=== PATIENT | female | born 1935 ===

== ENCOUNTER 2017-08-13 15:25 | Inpatient (IN) | payer MEDICAID ==
[~2017-08-13] VITALS: Ht 152.4 cm; Wt 88.9 kg
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
--- NOTE | ~2017-08-13 | PR ---
[place], [place] PROGRESS NOTE [id number] #: [id number] ROOM: 310 DOCTOR: ELIZABETH MANCILLA MD BIRTHDATE: [birth year] DOS: 08/16/2017 CHIEF COMPLAINT: "Oh yes if you can help show me to breakfast, I would appreciate it." SUMMARY OF THE VISIT: The patient was interviewed as she was finishing getting ready in her room with assistance of the aide. She was sitting at the edge of her bed, but engaged in conversation readily with me. She was bright and pleasant and stated that she has been feeling better since she has been here. She could not exactly tell me what happened that led to her coming into the hospital in the first place. Nurses though do report a near if not truly obsessional quality with the bathroom. She literally will sit on the toilet for hours until her roommate needs to utilize the toilet and then with much encouragement nursing can get her off so that her roommate can go into the restroom. This behavior was very similar to some behavior she exhibited while at [facility] and the root of some of her agitation may be related to obsessive compulsive disorder. MENTAL STATUS: She is alert and oriented with significant time gaps. Mood does seem to be somewhat euthymic with anxious overtones; however, there are no voiced delusions or paranoia and there is no voiced nell or hypomanic symptoms. Memory has gaps. PLAN: Her vitamin B12 level is low normal at 286, so I will go ahead and supplement with vitamin B12 injection of 1000 mcg IM today. I will start her on Luvox 50 mg at bedtime and rapidly titrate this as needed and as tolerated. We will monitor and support, engage in individual and hdez milieu activity, returning back to [facility] and the least restrictive environment when psychiatrically stable. ELIZABETH MANCILLA MD CM:PNTRANS 1 2 ELIZABETH MANCILLA MD 08/16/17932 interface
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
--- NOTE | ~2017-08-13 | PR ---
[place], [place] PROGRESS NOTE NAME: [facility] [id number] UN[facility] #: [id number] ROOM: 310 DOCTOR: ELIZABETH MANCILLA MD BIRTHDATE: [birth year] DOS: 08/21/2017 CHIEF COMPLAINT: "Oh honey I feel better, thank you." SUMMARY OF THE VISIT: The patient was interviewed as she was resting in bed. She was lying there with her eyes open and engaged readily in conversation. I had watched her eat her breakfast and she ate all of her breakfast and then walked down to her room unassisted. She did receive the Invega Sustenna injection and she was quite happy to have the injection as opposed to having to remember to take pills. She voices an improvement in her overall mood and denies any side effects. MENTAL STATUS: She is alert and oriented with some time gaps. Mood does seem to be strongly trending towards euthymia and affect is much more appropriate. There are no symptoms of nell or hypomania. There are no overt auditory or visual hallucinations. No delusions, no paranoia. Short term memory has gaps, otherwise she is intact. PLAN: I will go ahead and put an order in for her secondary loading dose of Invega Sustenna of 156 mg IM on 08/26/2017. We will continue to engage in individual and hdez milieu activity with the ultimate plan to return to [facility] when psychiatrically stable. ELIZABETH MANCILLA MD CM:PNTRANS 0817 [id number] ELIZABETH MANCILLA MD 08/21/17 1448 interface
--- NOTE | ~2017-08-13 | PR ---
[place], [place] PROGRESS NOTE [id number] #: [id number] ROOM: 310 DOCTOR: ELIZABETH MANCILLA MD BIRTHDATE: [birth year] DOS: 08/22/2017 CHIEF COMPLAINT: "Good morning, thank you so much for coming." SUMMARY OF THE VISIT: The patient was interviewed as she was resting quietly in bed. She engaged readily in conversation and she said that she had a good rest of the day yesterday and a good start today. She just felt like staying in her room, which tends to be her pattern at [facility]. She did tolerate and has tolerated the Invega Sustenna well and notes no side effects. MENTAL STATUS: She is alert and oriented with time gaps. Mood does seem to be trending towards euthymia. Affect is much more appropriate. There are no symptoms of nell or hypomania. There are no overt auditory or visual hallucinations. No delusions, no paranoia. Short term memory has gaps, otherwise she is intact. PLAN: I will continue her current psychotropic regimen, engage in individual and hdez milieu activity, returning to the least restrictive environment when stable. ELIZABETH MANCILLA MD CM:PNTRANS 1429 [id number] ELIZABETH MANCILLA MD 08/23/17 0041 interface
--- NOTE | ~2017-08-13 | PR ---
[place], [place] PROGRESS NOTE NAME: MAGALY ORDAZ [facility] #: [id number] UNIT #: [id number] ROOM: 310 DOCTOR: Tamiko CALLAWAY,TE BIRTHDATE: [birth year] DOS: 08/15/2017 SUBJECTIVE: Patient seen and spoke with the staff. Per staff, patient is doing good, med compliant, slept well. No behavioral problems or issues. Patient was pleasant and cooperative. She reports doing "fine." Med compliant. Denied any side effect from the medication. She denied any auditory or visual hallucination. She feels that the medication is helping her. MENTAL STATUS EXAMINATION: Pleasant and cooperative. Described her mood as "fine." Affect, mood congruent. Thought process, goal directed. No flight of ideas or loosening of association. She denied auditory or visual hallucination. No delusion or paranoia noted. She denied suicidal ideation, intent or plan. She also denied any homicidal ideation, intent or plan. ASSESSMENT: Schizoaffective disorder. PLAN: 1. Continue current medication and care. 2. Continue redirection. 3. Final medication management and discharge plan by the regular team. TE CALLAWAY MD CM:BRI 00 35 Tamiko CALLAWAY 08/15/17 2336 interface
--- NOTE | ~2017-08-13 | PR ---
[place], [place] PROGRESS NOTE [id number] #: [id number] ROOM: 310 DOCTOR: ELIZABETH MANCILLA MD BIRTHDATE: [birth year] DOS: 08/19/2017 CHIEF COMPLAINT: "I don't want to go back there. There are bad people there." SUMMARY OF THE VISIT: The patient was interviewed in the dining area where she was eating her breakfast. She engaged readily in conversation and initially was very pleasant and bright, reporting that she was feeling somewhat better. Later, she did start talking about returning back to [facility] where by her report, she has lived for the last 17 years. She states that she does not want to go back there that there are bad people there. She later did state that it was not the residents but some of the workers that are doing bad things and are bothering her. Whether this is reality or a delusion it is unclear. On a more positive note, she is at least out of her room more and is attending to groups and other activities. She is tolerating the current medication regimen well. MENTAL STATUS: She is alert and oriented with time gaps. Mood does seem to be trending towards euthymia. Affect is more appropriate. Whether the comments regarding her living situation are reality or delusional, it is unclear. Memory has some gaps. PLAN: I will renew her p.r.n. Ativan in case she requires intervention. I will continue to increase the Luvox from 50 mg in the morning and 100 mg at night to 50 mg twice daily and 100 mg at night to target depression, anxiety and her OCD symptoms. We will engage in individual and hdez milieu activity with the plan to return to the least restrictive environment when psychiatrically stable. ELIZABETH MANCILLA MD CM:PNTRANS 6 1 ELIZABETH MANCILLA MD 08/19/1731 interface
--- NOTE | ~2017-08-13 | PR ---
[place], [place] PROGRESS NOTE [id number] UN[facility] #: [id number] ROOM: 310 DOCTOR: ELIZABETH MANCILLA MD BIRTHDATE: [birth year] DOS: 08/17/2017 CHIEF COMPLAINT: "Oh, hello there doctor." SUMMARY OF THE VISIT: The patient was interviewed as she was sitting in her room attempting to take her medications from one of the nurses. She was very deliberately taking 1 pill at a time and washing it down with water. At one point, she got up and ran to the restroom stating that she thought she was going to throw up. Otherwise, she engaged in very superficial conversation. She seemed to minimize any symptoms as far as what brought her here to the hospital. Nurses report a near obsessional belief about the restroom and she will still spend hours in the restroom, requiring a great deal of redirection, so that her roommate can actually use the restroom at times. The patient does seem to be tolerating the current medication regimen well and I see no sedation, somnolence or other side effects. MENTAL STATUS: She is alert and oriented with some time gaps. Mood does seem to be somewhat depressed and she is anxious and fretful. There are no overt and voiced delusions or paranoia. Memory has some mild gaps. PLAN: I will continue to rapidly titrate the Luvox upwards, increasing her now from 50 mg at bedtime to 50 mg in the morning and 50 mg at bedtime. I will discontinue the Depakote ER as she does have Invega already on board to decrease mood lability and rather than having redundancy in this area, I will focus more on alleviating some of her OCD type symptoms. We will continue to engage her in individual and hdez and milieu activity, ultimately returning back to [facility] when psychiatrically stable. ELIZABETH MANCILLA MD CM:PNTRANS [id number] ELIZABETH MANCILLA MD 08/17/17 1031 interface
[2017-08-13] MEDS ORDERED: DEPAKOTE500 M1 PO (16:30)
[2017-08-13] MEDS ORDERED: LEVOTHYROXINE50 MCG PO (16:31)
[2017-08-13] MEDS ORDERED: THERA-M1 EACH PO (16:32)
[2017-08-13] MEDS ORDERED: ARICEPT10 M1 PO (16:33)
[2017-08-13] MEDS ORDERED: METFORMIN500 MG PO (16:34)
[2017-08-13] MEDS ORDERED: NAMENDA XR28 M1 PO (16:35)
[2017-08-13] MEDS ORDERED: ARTANE5 M1 PO (16:37)
[2017-08-13] MEDS ORDERED: ASPIRIN CHEWABL81 MG PO (16:38)
[2017-08-13] MEDS ORDERED: CARBIDOPA-LEVO1 EAC7 PO (16:39)
[2017-08-13] MEDS ORDERED: ZOCOR40 MG PO (16:46)
[2017-08-13] MEDS ORDERED: ZYPREXA10 M1 PO (16:46)
[2017-08-13] MEDS ORDERED: NEOMYCIN500 MG PO (16:54)
[2017-08-13 17:39] LABS: BILIRUBIN NEGATIVE (NEGATIVE); BLOOD NEGATIVE (NEGATIVE); CLARITY SL CLOUDY (CLEAR); COLOR YELLOW (YELLOW); GLUCOSE NEGATIVE (NEGATIVE); KETONE TRACE (NEGATIVE); LEUKO ESTERASE NEGATIVE (NEGATIVE); NITRITE NEGATIVE (NEGATIVE); PH 5.5 (5.0-9.0); SPECIFIC GRAVITY >= 1.030 (1.005-1.030); UROBILINOGEN 0.2 E.U./dl (0.2-1.0)
[2017-08-13 17:49] LABS: BACTERIA 2+; EPITHELIAL CELLS 16-20
[2017-08-13 19:00] VITALS: BP 140/63
[2017-08-14 07:08] LABS: BASO # 0.1 10*3/uL (0.0-0.1); BASO % 0.9 % (0.0-1.0); EOS # 0.1 10*3/uL (0.0-0.4); EOS % 2.1 % (1.0-4.0); HEMATOCRIT 34.9 % (37.0-47.0); HEMOGLOBIN 11.4 g/dl (12.0-16.0); LYMPH # 2.3 10*3/uL (1.3-4.4); LYMPH % 43.7 % (27.0-41.0); MEAN CELL VOLUME 95.4 fl (81.0-99.0); MEAN CORPUSCULAR HGB 31.1 pg (27.0-31.0); MEAN CORPUSCULAR HGB CONC 32.7 g/dl (33.0-37.0); MEAN PLATELET VOLUME 12.1 fl (9.6-12.3); MONO # 0.5 10*3/uL (0.1-1.0); MONO % 10.1 % (3.0-9.0); NEUT # 2.3 10*3/uL (2.3-7.9); NEUT % 42.8 % (47.0-73.0); PLATELET COUNT AUTOMATED 156 10*3/uL (130-400); RED BLOOD COUNT 3.66 10*6/uL (4.10-5.10); RED CELL DISTRI WIDTH 13.8 % (0-14.5); WHITE BLOOD COUNT 5.4 10*3/uL (4.8-10.8)
[2017-08-14 07:30] LABS: CHLORIDE 103 mmol/L (98-107); POTASSIUM 3.9 mmol/L (3.5-5.1); SODIUM 140 mmol/L (136-145)
[2017-08-14 07:40] LABS: ALBUMIN 3.4 gm/dl (3.1-4.5); ALKALINE PHOSPHATASE 71 U/L (45-117); BUN 20 mg/dl (7-24); CHOLESTEROL 189 mg/dL (<200); CREATININE 1.35 mg/dL (0.55-1.02); HDL CHOLESTEROL 69 mg/dl (40-60); LDL CHOLESTEROL 102 mg/dL (9-159); SGOT/AST 41 IU/L (3-35); SGPT/ALT 39 U/L (12-78); TOTAL PROTEIN 6.8 gm/dL (6.4-8.2); TRIGLYCERIDES 92 mg/dl (<150); VLDL CHOLESTEROL 18 mg/dL (6-40)
[2017-08-14 07:52] VITALS: BP 136/82
[2017-08-14 08:19] LABS: VITAMIN D, 25-HYDROXY 33.5 ng/mL (30-100)
[2017-08-14 20:00] VITALS: BP 146/76
[2017-08-15 07:38] VITALS: BP 144/74
[2017-08-15 20:00] VITALS: BP 130/60
[2017-08-16 08:18] VITALS: BP 130/74
[2017-08-16 20:00] VITALS: BP 128/66
[2017-08-17 08:10] VITALS: BP 108/65
[2017-08-17 20:22] VITALS: BP 152/73
[2017-08-17 20:48] VITALS: BP 128/74
[2017-08-18 08:00] VITALS: BP 130/58
[2017-08-18 20:00] VITALS: BP 129/54
[2017-08-19 08:01] VITALS: BP 135/56
[2017-08-19 20:00] VITALS: BP 132/62
[2017-08-20 07:55] VITALS: BP 134/62
[2017-08-20 20:00] VITALS: BP 140/68
[2017-08-21 07:56] VITALS: BP 130/64
[2017-08-21 20:05] VITALS: BP 131/54
[2017-08-22 07:59] VITALS: BP 127/56
[2017-08-22 20:00] VITALS: BP 129/58
[2017-08-23 07:38] LABS: BASO # 0.1 10*3/uL (0.0-0.1); EOS # 0.2 10*3/uL (0.0-0.4); LYMPH % 33.2 % (27.0-41.0); MEAN CELL VOLUME 96.9 fl (81.0-99.0); MEAN CORPUSCULAR HGB 31.3 pg (27.0-31.0); MEAN CORPUSCULAR HGB CONC 32.4 g/dl (33.0-37.0); MEAN PLATELET VOLUME 12.2 fl (9.6-12.3); MONO # 0.6 10*3/uL (0.1-1.0); MONO % 10.3 % (3.0-9.0); NEUT % 51.3 % (47.0-73.0); PLATELET COUNT AUTOMATED 131 10*3/uL (130-400); RED BLOOD COUNT 3.51 10*6/uL (4.10-5.10); RED CELL DISTRI WIDTH 13.7 % (0-14.5); WHITE BLOOD COUNT 5.9 10*3/uL (4.8-10.8)
[2017-08-23 08:01] VITALS: BP 139/56
[2017-08-23] MEDS ORDERED: ARICEPT10 M1 PO (08:06)
[2017-08-23] MEDS ORDERED: TRIHEXYPHENIDYL2 M3 PO (08:06)
[2017-08-23] MEDS ORDERED: MEMANTINE HCL10 MG PO (08:06)
[2017-08-23] MEDS ORDERED: FLUVOXAMINE50 MG PO ×2 (08:06)
[2017-08-23] MEDS ORDERED: INVEGA SUSTENN156 MG IM (08:06)
[2017-08-23 08:09] LABS: CREATININE 1.41 mg/dL (0.55-1.02); PHOSPHOROUS 3.5 mg/dL (2.5-4.9); POTASSIUM 4.5 mmol/L (3.5-5.1)
== END 2017-08-23 14:11 | disposition home or self-care (01) | DRG 885 ==
LOC: 3N 15:25
PROVIDERS: Internal Medicine; Psychiatry & Neurology Psychiatry
DX: F25.9 Schizoaffective disorder, unspecified (principal); G20 Parkinson's disease; E11.9 Type 2 diabetes mellitus without complications; G30.9 Alzheimer's disease, unspecified; F02.81 Dementia in other diseases classified elsewhere, unspecified severity, with behavioral disturbance; B95.5 Unspecified streptococcus as the cause of diseases classified elsewhere; E03.9 Hypothyroidism, unspecified; E78.5 Hyperlipidemia, unspecified; F31.9 Bipolar disorder, unspecified; N39.0 Urinary tract infection, site not specified; F41.9 Anxiety disorder, unspecified; Z91.19 Patient's noncompliance with other medical treatment and regimen; Z79.899 Other long term (current) drug therapy; Z79.82 Long term (current) use of aspirin

== ENCOUNTER 2020-03-26 15:15 | Inpatient (IN) | payer MEDICAID ==
[~2020-03-26] VITALS: Ht 157.4 cm; Wt 61.3 kg
[~2020-03-26 15:15] MED LIST: ARICEPT10 M1 PO; ARTANE5 M1 PO; ASPIRIN CHEWABL81 MG PO; CARBIDOPA-LEVO1 EAC7 PO; DEPAKOTE500 M1 PO; FLUVOXAMINE50 MG PO; INVEGA SUSTENN156 MG IM; LEVOTHYROXINE50 MCG PO; MEMANTINE HCL10 MG PO; METFORMIN500 MG PO; NAMENDA XR28 M1 PO; NEOMYCIN500 MG PO; THERA-M1 EACH PO; TRIHEXYPHENIDYL2 M3 PO; ZOCOR40 MG PO; ZYPREXA10 M1 PO
[2020-03-26] MEDS ORDERED: DULCOLAX10 M1 R (16:16)
[2020-03-26] MEDS ORDERED: IRON325 M1 PO (16:20)
[2020-03-26] MEDS ORDERED: LIPITOR20 MG PO (16:21)
[2020-03-26] MEDS ORDERED: ANTI-DIARRHEAL2 MG PO (16:22)
[2020-03-26] MEDS ORDERED: MILK OF MA400 MG/51 PO (16:23)
[2020-03-26] MEDS ORDERED: MIRALAX17 GM PO (16:24)
[2020-03-26] MEDS ORDERED: MYLANTA MAXIMU355 M1 PO (16:26)
[2020-03-26] MEDS ORDERED: OMEPRAZOLE20 M2 PO (16:27)
[2020-03-26] MEDS ORDERED: REMERON15 M2 PO (16:28)
[2020-03-26] MEDS ORDERED: TYLENOL325 M1 PO (16:29)
[2020-03-26] MEDS ORDERED: ZYPREXA5 M1 PO (16:33)
--- NOTE | 2020-03-26 20:54 | NUR ---
MAGALY ORDAZ a 84 year old F admitted via wheel chair from the ADMITTING as a voluntary admission. Arrived on unit at 2053. ALLERGIES: NKA. Vital signs are: 98.7-90-18 153/77. CLIENTS GUARDIAN GAVE VERBAL PERMISSION FOR THE FOLLOWING with stated understanding: Authorization For The Release of Medical Information, Clothing List, Consent to Voluntary Admission and Hospitalization, Consent and Release Forms/Receipt of Rights, Acknowledgement of Advance Directive Information, Behavioral Health Consent Form, and Informed Consent of Medications. Admitted under the services of Dr. LAURENT SHAH,[facility]. A search was conducted and hazardous articles were removed. Client was oriented to the unit. CLIENT DENIES ANY HALLUCINATIONS AND DENIES HAVING SEX WITH UNSEEN OTHERS. ANXIOUS WITH ALL INTERACTIONS. VICENTA DAVIS
[2020-03-26 21:00] VITALS: BP 153/77
[2020-03-26 21:17] VITALS: BP 153/77
--- NOTE | 2020-03-26 21:19 | NUR ---
CLIENT PARANOID ABOUT MEDICATION, VITALS MACHINE, HATS IN TOILET TO GET URINE. MUCH REDIRECTION NEEDED WITH EMOTIONAL SUPPORT.
--- NOTE | 2020-03-26 21:23 | NUR ---
DR JOEL NOTIFIED OF ADMISSION. DR YA IS HOSPITALIST
--- NOTE | 2020-03-26 21:30 | NUR ---
DR PATTERSON HERE TO SEE CLIENT. CLIENT INTERACTIVE WITH HIM.
--- NOTE | 2020-03-26 22:07 | NUR ---
STATES SHE LAYJACKS HERSELF TO FEEL BETTER (CROSS LEGS AND RUB CLIT). THEY TELL ME I AM GOING TO BREAK MYSELF DOING IT BUT I WON'T
[2020-03-26 22:48] LABS: BILIRUBIN NEGATIVE; BLOOD NEGATIVE (NEGATIVE); CLARITY SL CLOUDY (CLEAR); COLOR YELLOW (YELLOW); GLUCOSE NEGATIVE; KETONE NEGATIVE; LEUKO ESTERASE TRACE (NEGATIVE); NITRITE NEGATIVE (NEGATIVE); SPECIFIC GRAVITY 1.025 (1.001-1.030); UROBILINOGEN 0.2 E.U./dl (0.0-1.0)
[2020-03-26 22:54] LABS: EPITHELIAL CELLS 16-20
--- NOTE | 2020-03-27 01:38 | NUR ---
24 HR chart check completed.
--- NOTE | 2020-03-27 05:51 | NUR ---
SLEPT WELL PAST 2300PM
[2020-03-27 06:36] LABS: BASO # 0.1 10*3/uL (0.0-0.1); EOS # 0.1 10*3/uL (0.0-0.4); EOS % 1.2 % (1.0-4.0); HEMATOCRIT 33.1 % (37.0-47.0); LYMPH # 1.3 10*3/uL (1.3-4.4); LYMPH % 26.7 % (27.0-41.0); MEAN CELL VOLUME 85.5 fl (81.0-99.0); MEAN CORPUSCULAR HGB 26.6 pg (27.0-31.0); MEAN CORPUSCULAR HGB CONC 31.1 g/dl (33.0-37.0); MEAN PLATELET VOLUME 12.2 fl (9.6-12.3); MONO # 0.4 10*3/uL (0.1-1.0); MONO % 8.2 % (3.0-9.0); NEUT # 3.1 10*3/uL (2.3-7.9); NEUT % 62.7 % (47.0-73.0); PLATELET COUNT AUTOMATED 217 10*3/uL (130-400); RED BLOOD COUNT 3.87 10*6/uL (4.10-5.10); RED CELL DISTRI WIDTH 16.9 % (0-14.5)
--- NOTE | 2020-03-27 06:58 | NUR ---
C/O OF NOT FEELING GOOD, WANTING TO GO HOME. ORIENTED TO PLACE AND SELF. VITALS STABLE, BSG 83
[2020-03-27 06:59] VITALS: BP 120/61
[2020-03-27 07:12] LABS: ALBUMIN 3.2 gm/dl (3.1-4.5); CREATININE 1.76 mg/dL (0.55-1.02); FREE T4 0.78 ng/dl (0.76-1.46); POTASSIUM 4.6 mmol/L (3.5-5.1); TOTAL PROTEIN 7.1 gm/dL (6.4-8.2)
[2020-03-27 07:17] LABS: THYROID STIM HORMONE (HS) 7.69 uIU/ml (0.358-4.75)
[2020-03-27 08:47] LABS: VITAMIN D, 25-HYDROXY 39.6 ng/mL (30-100)
--- NOTE | 2020-03-27 09:00 | NUR ---
Treatment Plan meeting was held this a.m. with Dr. Gauthier via telephone, RN, AT, GIACOMO-S and Meat Service Team Member in attendance. Plan for discharge Next Week. Pt. came to [facility] from [facility]. Will reach out to facility today to discuss discharge Plans.
--- NOTE | 2020-03-27 11:56 | NUR ---
AM GROUP PT CHOSE NOT TO ATTEND MORNING GROUP THERAPY. PT WAS IN BED RESTING AND STATED, "I PROBABLY WON'T COME DOWN FOR ACTIVITIES BECAUSE I WILL BE LEAVING SOON"
--- NOTE | 2020-03-27 15:47 | NUR ---
PM GROUP/MANICURES PT CHOSE NOT TO ATTEND AFTERNOON GROUP THERAPY. PT WAS IN BED RESTING.
[2020-03-27 19:51] VITALS: BP 114/66
--- NOTE | 2020-03-27 20:44 | NUR ---
ISOLATIVE TO ROOM. ATE SNACK THEN REQUESTED ORAL HY[employer]ENE PRODUCTS FOR PM CARE. MEDICATION COMPLIANT BUT REFUSED BSG. REFUSED TO DISCUSS THE DAYS EVENTS AND WOULD ONLY SAY IT WAS "FINE". WILL CONTINUE TO MONITOR FOR CHANGES IN MOOD/BEHAVIOR AND Q 15 MINS AND PRN FOR SAFETY
--- NOTE | 2020-03-28 02:01 | NUR ---
24 HR chart check completed.
--- NOTE | 2020-03-28 06:04 | NUR ---
SLEPT WELL WITH INTERUPTIONS TO VOID. SLEPT PAST 2044PM
--- NOTE | 2020-03-28 06:07 | NUR ---
SLEPT WELL WITH INTERUPTIONS TO VOID. SLEPT PAST 2044PM
[2020-03-28 07:54] VITALS: BP 113/67
--- NOTE | 2020-03-28 09:07 | NUR ---
Treatment Plan meeting was held this a.m. with Dr. Gauthier RN, FINE CHEMICALS OPERATOR-S and Bench Inspector. Plan for discharge Next Week. Did reach out to [facility]. Pt. is LTC at facility but will require a Level of Care Prior to return due to being out of Medicaid Bed Hold Days. Clinical Updates faxed to Corporate at [facility].
--- NOTE | 2020-03-28 10:26 | NUR ---
DR PENN AND TEAM ON UNIT TO ASSESS PT, UPDATE PROVIDED.
--- NOTE | 2020-03-28 15:47 | NUR ---
P: PT ISOLATIVE TO ROOM THROUHGO DAY, REFUSED BREAKFAST. I: PROVIDE EMOTIONAL SUPPORT AND 1:1 FOR PT TO VOICE FEELINGS, ENCOURAGE MED COMPLIANCE AND PROVIDE MED EDUCATION, ENCOURAGE GROUP PARTICIPATION AND SOCIALIZATION, ENCOURAGE PO INTAKE R: PT ALERT TO PERSON, PLACE AND TIME. PT MED COMPLIANT WITHOUT DIFFICULTY, MED EDUCATION PROVIDED. NO HALLUCINATIONS OR DELUSIONS NOTED. PT DENIES ANY SUICIDAL THOUGHTS OR BEHAVIORS. PT CONTINUES TO BE ISOLATIVE TO ROOM, REFUSED BREAKFAST, CONSUMED 100% OF LUNCH. PT AMBULATORY THROUGOUT UNIT WITH WHEELED WALKER, GAIT STEADY. PT CONTINENT OF BOWEL AND BLADDER. P: MONITOR PT BEHAVIORS ON Q15 MIN SAFETY CHECKS, ENCOURAGE MED COMPLIANCE AND PROVIDE MED EDUCATION, ENCOURAGE PO INTAKE, ENCOURAGE GROUP PARTICIPATION AND SOCIALZIATION, PROVIDE EMOTIONAL SUPPORT AND 1:1 FOR PT TO VOICE FEELINGS.
[2020-03-28 20:00] VITALS: BP 107/63
--- NOTE | 2020-03-28 22:17 | NUR ---
PT WITH NO ADVERSE BEHAVIORS SO FAR THIS SHIFT. PATIENT ALERT AND ORIENTED X3 WITH CONFUSION. PT ISOLATIVE TO ROOM SINCE BEGINNING OF SHIFT, ONLY BRIEFLY COMING TO DINING ROOM TO EAT HS SNACK. PT GUARDED AT TIMES BUT OTHERWISE CALM, COOPERATIVE. MEDICATION COMPLIANT WITHOUT DIFFICULTY AFTER REVIEW. PT DENIES SI/HI, HALLUCINATIONS, AND PAIN. NO NOTED RESPONDING TO INTERNAL STIMULI. PT WITH STEADY GAIT USING WHEELED WALKER, INDEPENDENT IN ADL'S, CONTINENT OF BOWEL AND BLADDER. PT CURRENTLY LAYING DOWN WITH EYES CLOSED, RESPIRATIONS EASY AND REGULAR, NO SIGNS OR SYMPTOMS OF DISTRESS NOTED. PLAN IS TO CONTINUE TO MONITOR MOOD AND BEHAVIORS. MAINTAIN Q 15 MIN CHECKS AND PRN FOR SAFETY.
--- NOTE | 2020-03-29 01:28 | NUR ---
PATIENT OBSERVED BY STAFF TO TAKE TRASH CAN X2 AND HIT IT OFF SIDE OF BED. WHEN QUESTIONED, PATIENT STATED "IM NOT DOING ANYTHING, IM GOING TO THE BATHROOM". TRASH CAN REMOVED FROM ROOM AT THIS TIME, PT REDIRECTED BACK TO BED. WILL CONTINUE TO MONITOR FOR ESCALATING BEHAVIORS.
--- NOTE | 2020-03-29 05:57 | NUR ---
PATIENT OBSERVED ON Q 15 MIN CHECKS TO HAVE SLEPT APPROX 5 HOURS, INTERRUPTED. MULTIPLE AWAKENINGS NOTED TO HIT CALL LIGHT FOR VARIOUS WANTS AND DEMANDS, (ROLLS OF TOLIET PAPER, WASH RAGS, TOWELS, SIMONS) DESPITE ALL NEEDS BEING MET. PATIENT REDIRECTED BACK TO BED WITH MUCH ENCOURAGEMENT EACH TIME. NO DISTRESS NOTED.
--- NOTE | 2020-03-29 06:59 | NUR ---
PATIENT PREOCCUPIED WITH SITTING ON THE TOILET THIS AM, NO URINE OR BM OBSERVED. WHEN QUESTIONED WHY SHE KEEPS RETURNING TO THE TOILET PATIENT STATES "OH IM JUST THINKING". UNABLE TO REDIRECT AT THIS TIME.
[2020-03-29 07:23] VITALS: BP 152/56
--- NOTE | 2020-03-29 07:27 | NUR ---
Patient resting quietly with no c/o discomfort. Respirations easy and regular. Vital signs stable. No overt distress. CRUZITO NAVARRETE
--- NOTE | 2020-03-29 10:26 | NUR ---
DR PENN AND TEAM ON UNIT TO ASSESS PT, UPDATE PROVIDED.
--- NOTE | 2020-03-29 11:39 | NUR ---
AM GROUP/SOCIALIZATION PT ISOLATES TO ROOM AND CHOOSES NOT TO ATTEND OR PARTICIPATE IN GROUP THERAPY. PT WAS OFFERED ACTIVITIES THAT COULD BE DONE IN HER ROOM, MAGAZINES, WORD SEARCH, ETC, BUT PT DECLINED.
--- NOTE | 2020-03-29 13:15 | NUR ---
OT NOTE Occupational therapy order received and OT screening completed this date. Patient demonstrated independent ADLs and Mod I transfers/mobility within the HU. Patient has no further OT needs at this time. Will discharge OT orders at this time. Thank you. Yolette Anthony, OTR/L
--- NOTE | 2020-03-29 13:27 | NUR ---
PHYSICAL THERAPY PT evaluation attempted. Patient modified independent with FWW in room and throughout hallway. Patient demonstrated community gait speed with no LOB this date. PT screen complete. No PT needs at this time. Discharge PT order. Thank you. Betsy Burks,PT,DPT
--- NOTE | 2020-03-29 13:33 | NUR ---
Treatment team held this AM with Jayne Magana DEEP WELL CONTRACTOR, RN, document coordinator and this CABIN CLEANING SUPERVISOR-S. Discharge plan is for pt to return to [facility] next week.
--- NOTE | 2020-03-29 15:13 | NUR ---
P: PT PREOCCUPIED WITH SITTING ON THE TOILET, STATING TO STAFF "SOMEONE TOLD ME TO, I JUST DON'T REMEMBER WHO, [facility], YOU CAN LEAVE NOW" PT REFUSED TO COME OUT FOR BREAKFAST, CONTINUED TO SIT ON THE TOILET. PT LAUGHING INAPPROPRIATLEY AT TIMES. I: PROVIDE EMOTIONAL SUPPORT AND 1:1 FOR PT TO VOICE FEELINGS, ENCOURAGE PO INTAKE, PRESENT REALITY R:: PT ALERT TO PERSON, PLACE AND TIME. PT MED COMPLIANT WITHOUT DIFFICULTY, MED EDUCATION PROVIDED. PT CONTINUES TO SIT ON THE TOILET FOR EXTENDED PERIODS OF TIME THROUGOUT THE DAY, PT CONTINUED TO REFUSE TO COME OUT FOR BREAKFAST, MULTIPLE STAFF MEMBERS PROVIDED ENCOURAGEMENT. PT PLEASANT WITH STAFF. NO HALLUCINATIONS NOTED. PT DENIES ANY SUICIDAL THOUGHTS. PT UP AD NOLAN WITH WHEELED WALKER, GAIT STEADY. PT CONTINENT OF BOWEL AND BLADDER. SKIN ASSESSMENT COMPLETED, NO AREAS OF CONCERN NOTED TO BUTTOCKS AT THIS TIME. P: MONITOR PT BEHAVIORS ON Q15 MIN SAFETY CHECKS, ENCOURAGE MED COMPLIANCE AND PROVIDE MED EDUCATION, PROVIDE EMOTIONAL SUPPORT AND 1:1 FOR PT TO VOICE FEELINGS, ENCOURAGE PO INTAKE, EDUCATE PT ON THE ADVERSE EFFECTS OF SITTING ON THE TOILET FOR EXTENDED PERIODS OF TIME, SUCH SKIN BREAKDOWN.
--- NOTE | 2020-03-29 15:24 | NUR ---
PM GROUP/RELAXATION PT CAME INTO GROUP THERAPY FOR THE FIRST TIME ABOUT 45 MINUTES LATE. PT WAS DEMANDING AND CONTINUALLY REQUESTED FOOD ITEMS. PT DRANK 4 CONTAINERS OF GRAPE JUICE, HAD A BAG OF POTATO CHIPS, 2 PACKS OF LINH CRACKERS AND PEANUT BUTTER AND CONTINUED TO ASK FOR MORE. PT WAS INFORMED THAT SHE HAD HAD ENOUGH TO SNACK ON AND PT SAID, "WELL WHO DO I ASK TO GET IT FOR ME?" PT WAS VERY SOCIALABLE WITH PEERS. PT LEFT THE ROOM TO GO TO THE RESTROOM AND DID NOT RETURN.
[2020-03-29 20:00] VITALS: BP 141/66
--- NOTE | 2020-03-29 23:32 | NUR ---
P-CONFUSION, DELUSIONAL THOUGHT PROCESS. I-PROVIDE 1:1 WITH THERAPEUTIC INTERVENTIONS. PRESENT REALITY AND REORIENT. ENCOURAGE MEDICATION COMPLIANCE AND EDUCATION. MONITOR SLEEP. R-PATIENT ALERT TO PERSON, APPROX PLACE, WITH CONFUSION. PT ISOLATIVE TO ROOM SINCE BEGINNING OF SHIFT, ONLY COMING TO DINING ROOM FOR HS SNACK AND FOR HS MEDICATION PASS. PT MEDICATION COMPLIANT WITHOUT DIFFICULTY. PT OBSERVED IN ROOM, EITHER STANDING BESIDE BED OR INFRONT OF TOILET, WHEN QUESTIONED PATIENT STATED SHE HAS TO STAND THERE BECAUSE HER MOTHER IS HAVING A DIFFICULTY BREATHING AND MIGHT IF SHE DOESNT. PT UNRECEPTIVE TO REDIRECTION OR REORIENTATION WHEN PRESENTED, PT STATES "YOU KNOW WHAT ITS LIKE TO CHOKE, THATS WHAT'S HAPPENING IF I DONT STAND HERE, SHE CHOKES". PT DENIES SI/HI, HALLUCINATIONS, OR PAIN. NO NOTED RESPONDING TO INTERNAL STIMULI AT THIS TIME. PT AMBULATORY WITH A STEADY GAIT USING A WHEELED WALKER, INDEPENDENT IN ADL'S, CONTINENT OF BOWEL AND BLADDER. PT CURRENTLY LAYING DOWN, RESPIRATIONS EASY AND REGULAR, NO DISTRESS NOTED. P-CONTINUE TO MONITOR MOOD AND BEHAVIORS. MAINTAIN Q 15 MIN CHECKS AND PRN FOR SAFETY.
--- NOTE | 2020-03-30 05:21 | NUR ---
PATIENT OBSERVED ON Q 15 MIN CHECKS TO HAVE SLEPT APPROX 1 HOUR INTERRUPTED.
[2020-03-30 07:26] VITALS: BP 128/63
[2020-03-30 09:15] LABS: BASO % 0.6 % (0.0-1.0); EOS # 0.1 10*3/uL (0.0-0.4); HEMATOCRIT 32.7 % (37.0-47.0); LYMPH # 1.7 10*3/uL (1.3-4.4); LYMPH % 32.2 % (27.0-41.0); MEAN CELL VOLUME 86.7 fl (81.0-99.0); MEAN CORPUSCULAR HGB 26.8 pg (27.0-31.0); MEAN CORPUSCULAR HGB CONC 30.9 g/dl (33.0-37.0); MEAN PLATELET VOLUME 11.6 fl (9.6-12.3); MONO # 0.6 10*3/uL (0.1-1.0); MONO % 10.4 % (3.0-9.0); NEUT # 2.9 10*3/uL (2.3-7.9); NEUT % 54.2 % (47.0-73.0); PLATELET COUNT AUTOMATED 203 10*3/uL (130-400); RED BLOOD COUNT 3.77 10*6/uL (4.10-5.10); WHITE BLOOD COUNT 5.4 10*3/uL (4.8-10.8)
[2020-03-30 09:45] LABS: ALBUMIN 3.8 gm/dl (3.1-4.5); CREATININE 2.01 mg/dL (0.55-1.02); POTASSIUM 4.8 mmol/L (3.5-5.1); TOTAL PROTEIN 7.8 gm/dL (6.4-8.2)
--- NOTE | 2020-03-30 09:48 | NUR ---
DR PENN ON UNIT TO ASSESS PT, UPDATE PROVIDED.
--- NOTE | 2020-03-30 10:14 | NUR ---
SPOKE WITH DR PENN AT [phone] RE: BROOKE CRUZ PSYCHOLOGICAL ANTHROPOLOGIST GETTING LABS AND THE PTS BUN AND CREATININE BEING ELEVATED. ADVISED THAT WE WILL CONTINUE TO ENCOURAGE FLUIDS. PER DR. PENN HE WILL ORDER MORE LABS FOR TOMORROW TO MONITOR. NO ADDITIONAL ORDERS AT THIS TIME.
--- NOTE | 2020-03-30 15:19 | NUR ---
P: PT ISOLATIVE TO HER ROOM FOR MUCH OF THE DAY. POOR PO INTAKE. I: PROVIDE EMOTIONAL SUPPORT AND 1:1 FOR PT TO VOICE FEELINGS, ENCOURAGE MED COMPLIANCE AND PROVIDE MED EDUCATION, ENCOURAGE PO INTAKE, ENCOURAGE PT TO COME OF FOR MEALS, ENCOURAGE GROUP PARTICIPATION AND SOCIALIZATION R: PT ALERT TO PERSON, PLACE AND TIME. PT MED COMPLIANT WITHOUT DIFFICULTY, MED EDUCATION PROVIDED. PT CALM, MOOD IS STABLE. PT CONTINUES TO ISOLATE TO HER ROOM, COMING OUT FOR MEALS WITH MUCH ENCOURAGEMENT. PT PO INTAKE REMAINS POOR AT TIMES, PT CONSUMED 19% OF BREAKFAST AND DRANK 120CC OF FLUIDS, PT CONSUMED 100% OF LUNCH WITH 480 CC OF FLUIDS WITH MUCH ENCOURAGEMENT. PT MOOD IS STABLE. PT AMBULATORY THROUHGOUT UNIT WITH WHEELED WALKER, GAIT STEADY, REQUIRES OCCASIONAL REMINDERS TO UTILIZE WHEELED WALKER AND TO SLOW DOWN WHEN WALKING. PT CONTUNENT OF BOWEL AND BLADDER. NO S/S OF PAIN OR DISTRESS NOTED. P: PROVIDE EMOTIONAL SUPPORT AND 1:1 FOR PT TO VOICE FEELINGS, ENCOURAGE MED COMPLIANCE AND PROVIDE MED EDUCATION, ENCOURAGE PO INTAKE, ENCOURAGE GROUP PARTICIPATION AND SOCIALIZATION
[2020-03-30 20:00] VITALS: BP 139/67
--- NOTE | 2020-03-30 20:00 | NUR ---
CAME TO DININGROOM WITH MUCH ENCOURAGEMENT ATE CHEESE AND THEN WENT TO BED. CONTINUES TO SIT ON TOILET MOST OF THE TIME. MEDICATION COMPLIANT. REFUSES TO TALK ABOUT THE DAY WITH STAFF. WILL MONITOR FOR CHANGES IN MOOD/BEHAVIOR AND Q 15 MINS AND PRN FOR SAFETY. REFUSED TO ALLOW STAFF TO ASSIST WITH PM CARE AND ORAL CARE.
--- NOTE | 2020-03-31 04:01 | NUR ---
24 HR chart check completed.
--- NOTE | 2020-03-31 05:35 | NUR ---
24 HR chart check completed.
--- NOTE | 2020-03-31 05:37 | NUR ---
SLEPT LESS THAN 2 HOURS. REMAINS PROCCUPIED WITH SITTING ON TOILET
[2020-03-31 06:17] LABS: CREATININE 1.79 mg/dL (0.55-1.02); POTASSIUM 4.4 mmol/L (3.5-5.1)
[2020-03-31 07:55] VITALS: BP 137/68
--- NOTE | 2020-03-31 08:36 | NUR ---
NASAL SWAB COLLECTED FOR COVID 19 AND SENT TO LAB, PATIENT TOLERATED WELL.
--- NOTE | 2020-03-31 15:32 | NUR ---
P: ISOLATIVE TO ROOM. DEPRESSED MOOD. I: ONE ON ONE, ENCOURAGE TO PARTICIPATE IN GROUP SESSION AND TO INTERACT WITH STAFF AND OTHER PEERS. R: INEFFECTIVE. PATIENT UP FOR MEALS AND THEN RETURNS TO BED TO LAY DOWN. PATIENT IS ALERT TO PERSON, SITUATION, MONTH AND YEAR WITH SLIGHT CONFUSION. NO INAPPROPRIATE LAUGHTER NOTED. MOOD IS DEPRESSED. DENIES ANY HALLUCINATIONS, DELUSIONS, HI/SI OR PAIN. 1 PERSON ASSIST WITH ACTIVITIES OF DAILY LIVING, CONTINENT OF BOWEL AND BLADDER. MEDICATION COMPLAINT. Q 15 MINUTE SAFETY CHECKS MAINTAINED. ISOLATIVE. NO RESPONSE TO INTERNAL STIMULI OBSERVED. P: CONTINUE TO MONITOR FOR HALLUCINATIONS, DELUSIONS, INAPPROPRIATE LAUGHTER, PARANOIA, EXIT SEEKING. PROVIDE ONE ON ONE, REDIRECTION/ORIENTATION AND ENCOURAGE PATIENT TO BE MORE INTERACTIVE WITH STAFF AND OTHERS.
[2020-03-31 19:54] VITALS: BP 150/74
--- NOTE | 2020-03-31 20:38 | NUR ---
ISOLATIVE TO ROOM. TO DININGROOM FOR SNACK. REFUSED TO TALK WITH STAFF. USES WALKER. IN AND OUT OF BATHROOM OVER LAST COUPLE HOURS. MEDICATION COMPLIANT. WILL MONITOR FOR CHANGES IN MOOD/BEHAVIOR AND Q 15 MINS AND PRN FOR SAFETY
--- NOTE | 2020-04-01 01:00 | NUR ---
UP IN BATHROOM AGAIN. MENTAL HEALTH WORKER PREPPING TO SHOWER CLIENT TO HELP SEE IF THIS RELAXES HER. JOLYNN CONTINUE TO MONITOR
--- NOTE | 2020-04-01 03:33 | NUR ---
24 HR chart check completed.
--- NOTE | 2020-04-01 06:43 | NUR ---
UP AND DRESSED. CAME TO DININGROOM FOR MEDICATIONS AND BSG. DRANK 1/2 CUP WATER THEN RETURNED TO HER ROOM SLEPT A BROKEN 4-5 HOURS
[2020-04-01 07:51] VITALS: BP 140/62
--- NOTE | 2020-04-01 09:00 | NUR ---
Treatment Plan meeting was held this a.m. with Dr. Gauthier, LIME SLUDGE KILN OPERATOR Jayne, RN, AT, PANEL LAMINATOR-S and Gas Appliance Mechanic. Plan for discharge Next Week. Pt. Guardian would like for Pt. to go to [facility]. Referral was faxed Wednesday. Pending Acceptance.
--- NOTE | 2020-04-01 11:42 | NUR ---
PATIENT IS ALERT AND ORIENTED X4. MOOD IS STABLE WITH PLEASANT DEMEANOR. DENIES SUICIDAL IDEATION. DENIES HOMICIDAL IDEATION. DENIES ANY HALLUCINATIONS OR DELUSIONS. DOES NOT APPEAR TO BE AFFECTED BY ANY INTERNAL STIMULI. AMBULATES INDEPENDENTLY WITH WALKER. STATES SHE "LIKES TO SLEEP". PATIENT DID PARTICIPATE IN GROUP THERAPY AFTER ENCOURAGEMENT. COMPLIANT WITH MEDICATION. Q 15 MINUTE SAFETY CHECKS MAINTAINED. INDEPENDANT WITH ACTIVITES OF DAILY LIVING. WILL CONTINUE TO MONITOR FOR EXIT SEEKING, PARANOIA, MEDICATION COMPLIANCE, INAPPROPRIATE LAUGHTER, AND HALLUCINATIONS.
--- NOTE | 2020-04-01 11:45 | NUR ---
Clinical Updates faxed to [facility] and [facility].
--- NOTE | 2020-04-01 11:49 | NUR ---
AM GROUP/BIRDHOUSES PT ENTERED GROUP LATE BUT WAS EXCITED TO PAINT A BIRDHOUSE. PT WAS FOCUSED AND ON TASK AND EXHIBITED NO ADVERSE BEHAVIORS WHILE IN GROUP.
--- NOTE | 2020-04-01 12:56 | NUR ---
PATIENT RECEIVED INVEGA SUSTENA 234 IN RIGHT DELTOID. PATIENT TOLERATED WELL.
--- NOTE | 2020-04-01 15:44 | NUR ---
PM GROUP/RELAXATION PT WAS IN BED RESTING AT THE START OF GROUP AND WAS ENCOURAGED TO ATTEND. PT CHOSE TO REMAIN IN BED.
--- NOTE | 2020-04-01 20:14 | NUR ---
Patient refused for entire vital signs and for bedside glucose to be done.
--- NOTE | 2020-04-01 23:31 | NUR ---
Patient alert and oriented x 4. Mood is slightly irritable. Patient isolative to room all evening even refusing to come to diningroom for snack. Patient denies any SI/HI,hallucinations,or delusions. No s/s of any responding to internal stimuli noted at this time. Patient refused HS medications. Attempted to encourage patient several times but patient continued to refuse. Attempted to provide emotional support and therapeutic communication but patient said "just leave me alone." Plan to continue to encourage medication compliance and also emotional support. Will continue to monitor moods/behaviors. Q 15 minute safety checks continued and maintained. See [facility] flowsheet for further documentation.
--- NOTE | 2020-04-02 06:27 | NUR ---
Patient slept approx. 4 hours throughout shift. Q 15 minute safety checks continued and maintained.
--- NOTE | 2020-04-02 09:00 | NUR ---
Treatment Plan meeting was held this a.m. with Dr. Gauthier via telephone, INDUSTRIAL DESIGN INTERN Jayne, RN, AT, PATIENT REPRESENTATIVE-S and Etcher Printed Circuit Boards in attendance. Plan for discharge Next Week. Pt. Guardian has requested Pt. discharge to [facility] if Possible. Working with Manager Of Training And Development Lolis Quick at [facility] to facilitate discharge. If Pt. is unable to go to [facility] she will return to [facility].
--- NOTE | 2020-04-02 09:15 | NUR ---
ANGE ELECTROMEDICAL EQUIPMENT TECHNICIAN ON UNIT TO SEE PT AT THIS TIME.
--- NOTE | 2020-04-02 11:42 | NUR ---
AM GROUP PT CHOSE NOT TO ATTEND MORNING GROUP THERAPY. PT WAS IN BED RESTING.
--- NOTE | 2020-04-02 15:50 | NUR ---
PM GROUP PT WAS ENCOURARED TO ATTEND AFTERNOON GROUP THERAPY BUT DECLINED. PT STAYED IN BED AND ENTERED THE DAYROOM WITH ONLY 15 MINUTES LEFT WANTING TO PAINT. PT WAS TOLD THAT WE COULD PAINT TOMORROW AND SHE WOULD BE REMINDED. PT WENT BACK TO HER ROOM.
--- NOTE | 2020-04-02 18:24 | NUR ---
P: ISOLATIVE TO ROOM. DEPRESSED MOOD. I: ONE ON ONE, ENCOURAGE TO PARTICIPATE IN GROUP SESSION AND TO INTERACT WITH STAFF AND OTHER PEERS. R: INEFFECTIVE. PATIENT UP FOR MEALS AND THEN RETURNS TO BED TO LAY DOWN. PATIENT IS ALERT TO PERSON, PLACE, SITUATION, MONTH AND YEAR WITH SLIGHT CONFUSION. NO INAPPROPRIATE LAUGHTER NOTED. MOOD IS DEPRESSED. DENIES ANY HALLUCINATIONS, DELUSIONS, HI/SI OR PAIN. 1 PERSON VERBAL CUEING WITH ACTIVITIES OF DAILY LIVING, CONTINENT OF BOWEL AND BLADDER. NON COMPLAINT WITH MORNING MEDICATION. TOO AFTERNOON MEDICATIONS WITH ENCOURAGEMENT. Q 15 MINUTE SAFETY CHECKS MAINTAINED. ISOLATIVE. NO RESPONSE TO INTERNAL STIMULI [id number]. P: CONTINUE TO MONITOR FOR HALLUCINATIONS, DELUSIONS, INAPPROPRIATE LAUGHTER, PARANOIA, EXIT SEEK. PROVIDE ONE ON ONE, REDIRECTION/ORIENTATION AND ENCOURAGE PATIENT TO BE MORE INTERACTIVE WITH STAFF AND OTHERS.
[2020-04-02 20:00] VITALS: BP 134/60
--- NOTE | 2020-04-02 23:45 | NUR ---
P-ISOLATIVE, WITHDRAWN I-REDIRECTION WITH 1:1 THERAPEUTIC INTERVENTIONS AND PRESENT REALITY. EDUCATE AND ENCOURAGE MEDICATION COMPLIANCE R-PATIENT MEDICATION COMPLIANT AT HS. NOURISHMENT AND FLUIDS PROVIDED AT HS. PATIENT AMBULATORY ON UNIT WITH WALKER. PATIENT ISOLATIVE TO ROOM. PATIENT WITH LIMITED INTERACTION WITH PEERS IN DINING AREA. PATIENT PREOCCUPIED WITH USING THE BATHROOM. PATIENT IN BATHROOM FREQUENTLY BUT DENIES DYSURIA, URINARY FREQUENCY, CONSTIPATION, OR DIARRHEA. +BS X 4 QUADRANTS. PATIENT WASHING SELF AT THE SINK THIS SHIFT. PATIENT COOPERATIVE WITH STAFF AT THIS TIME. PATIENT WITH NO HALLUCINATIONS OR DELUSIONS. PATIENT WITH NO HOMICIDAL OR SUICIDAL IDEATIONS. P-CONTINUE TO ENCOURAGE MEDICATION COMPLIANCE, CONTINUE TO PRESENT REALITY, ENCOURAGE GROUP THERAPY WHILE AWAKE
--- NOTE | 2020-04-03 05:39 | NUR ---
PATIENT SLEPT 1 HOURS OF INTERRUPTED SLEEP THROUGHOUT SHIFT. Q 15 MINUTE CHECKS MAINTAINED. 24 HR chart check completed.
[2020-04-03 08:00] VITALS: BP 150/57
--- NOTE | 2020-04-03 09:00 | NUR ---
Treatment Plan meeting was held this a.m. with Dr. Gauthier via telephone, INSTITUTIONAL COOK Jayne, RN, AT, DUMPER CENTRAL CONCRETE MIXING PLANT-S and Record Label Internship in attendance. Plan for discharge Next Week. [facility].
--- NOTE | 2020-04-03 11:42 | NUR ---
AM GROUP/LEISURE INTERESTS PT DID NOT ATTEND MORNING GROUP THERAPY. PT WAS IN BED RESTING.
--- NOTE | 2020-04-03 12:24 | NUR ---
P: PREOCCUPIED WITH BOWEL AND BLADDER. SITTING ON TOIET AND ROCKING FOR HOURS. ASKED PATIENT WHAT SHE WAS DOING IN THE BATHROOM SO LONG? "I'M THINKING" ISOLATIVE TO ROOM. I: ONE ON ONE, ENCOURAGED PATIENT TO COME IN QUIET ROOM TO ROCK IN ROCKING CHAIR. REDIRECTION PROVIDED, FREQUENT CHECKS WHILE ON TOILET AND ENCOURAGE TO REPOSTITION AND STAND FOR SKIN PREVENTION. R: INEFFECTIVE. PATIENT CAME TO QUIET ROOM. SAT IN ROCKING CHAIR THEN STATED "I HAVE TO GO TO THE BATHROOM" PATIENT IS ALERT AND ORIENTED TO PERSON, PLACE, TIME AND SITUATION; ABLE TO VOICE NEEDS. DENIES ANY HALLUCINATIONS, DELUSIONS, HI/SI OR PAIN. MEDICATION COMPLAINT WITH EDUCATION PROVIDED. Q 15 MINUTE SAFETY CHECKS. 1 PERSON VERBAL CUEING WITH ACTIVITIES OF DAILY LIVING, CONTINENT OF BOWEL AND BLADDDER. SET UP FOR MEALS, INTAKES VARY WITH MUCH ENCOURAGEMENT. AMBULATORY USING WALKER WITH STEADY GAIT. INTERACTIVE WITH STAFF AND OTHER PATIENTS AT MEAL TIMES. NO INAPPROPRIATE LAUGHTER AND EXIT SEEKING NOTED. P: CONTINUE TO MONITOR FOR HALLUCINATIONS, PARANIOA, INAPPROPRIATE LAUGHTER AND EXIT SEEKING. PROVIDE ONE ON ONE FOR EMOTIONAL SUPPORT, REDIRECTION AND ENCOURAGEMENT TO ATTEND GROUP SESSION.
--- NOTE | 2020-04-03 12:50 | NUR ---
Level of Care Completed and faxed to [facility] Attn: Laura.
--- NOTE | 2020-04-03 15:49 | NUR ---
PM GROUP PT WAS HER BATHROOM AT THE START OF AFTERNOON GROUP AND WHEN ENCOURAGED TO ATTEND STATED, "NO, I'M IN THE BATHROOM" PT DID ENTER GROUP AND HOUR LATER BUT DECLINED ANY ACTIVITY OFFERED AND IMMEDIATELY STATED, "I HAVE TO GO TO MY ROOM TO URINATE" PT WAS ENCOURAGED TO STAY BUT LEFT THE DAYROOM. PT WAS RETURNED TO THE DAYROOM BY NURSING. PT SAT AT THE BACK OF THE ROOM AND CHOSE NOT TO PARTICIPATE.
--- NOTE | 2020-04-03 16:47 | NUR ---
PT ATTENDED LATTER PORTION OF GROUP SESSION AFTER MUCH ENCOURAGEMENT AND REDIRECTION TO SPEND LESS TIME SITTING ON THE TOILET CONTINUALLY. PT CONTINUES TO BE PREOCCUPIED WITH TOLIETING. Q2H TOLIETING SCHEDULE ENCOURAGED. PT DID ATTEMPT TO LEAVE GROUP X2 BUT WAS ABLE TO BE EASILY VERBALLY REDIRECTED BACK TO GROUP. AFTER GROUP ENDED PT DID RETURN TO HER ROOM BUT WAS OBSERVED BY THIS RN UPON ROUNDING TO BE LAYING IN BED. 1645 THIS NURSE TO PT'S ROOM TO ALERT HER DINNER HAS ARRIVED ON THE UNIT. PT IN BATHROOM, STATES SHE IS COMING DOWN TO EAT. PT DID THEN AMBULATE TO DINING ROOM AND IS EATING DINNER AT THIS TIME. WILL CONTINUE TO MONITOR AND ENCOURAGE Q2H TOILETING.
--- NOTE | 2020-04-03 17:50 | NUR ---
PT ATE DINNER IN DINING ROOM WITH PEERS. SHORTLY AFTER FINISHING HER DINNER PT RETURNED TO ROOM AND IS LAYING IN BED. WILL CONT TO MONITOR.
--- NOTE | 2020-04-03 18:46 | NUR ---
PT NOTED IN BATHROOM UPON ROUNDING AT 1815, AT 1830 PT STILL IN BATHROOM. THIS RN REMINDS PT IT IS NOT HEALTHY TO SIT IN THE BATHROOM FOR EXTENDED PERIODS OF TIME. PT STATES "OK". PT EASILY VERBALLY REDIRECTED OUT OF BATHROOM AND IS LAYING IN BED.
[2020-04-03 19:43] VITALS: BP 148/97
--- NOTE | 2020-04-03 23:16 | NUR ---
P-ISOLATIVE, WITHDRAWN I-REDIRECTION WITH 1:1 THERAPEUTIC INTERVENTIONS AND PRESENT REALITY. EDUCATE AND ENCOURAGE MEDICATION COMPLIANCE R-PATIENT MEDICATION COMPLIANT AT HS. NOURISHMENT AND FLUIDS PROVIDED AT HS. PATIENT AMBULATORY ON UNIT WITH WALKER. PATIENT ISOLATIVE TO ROOM. PATIENT WITH LIMITED INTERACTION WITH PEERS IN DINING AREA. PATIENT PREOCCUPIED WITH USING THE BATHROOM. PATIENT IN BATHROOM FREQUENTLY BUT DENIES DYSURIA, URINARY FREQUENCY, CONSTIPATION, OR DIARRHEA. +BS X 4 QUADRANTS. PATIENT WASHING SELF AT THE SINK THIS SHIFT. PATIENT ENCOURAGED TO NOT SPEND MUCH TIME IN THE BATHROOM. PATIENT STATED "I WAS INFORMED TO NOT GO TO THE BATHROOM MUCH" PATIENT STATED "I GO TO THE BATHROOM TO TAKE CARE OF PERSONAL BUSINESS" PATIENT STATED TO NURSING STAFF THAT SHE GOES TO THE BATHROOM TO PRAY. PATIENT COOPERATIVE WITH STAFF AT THIS TIME. PATIENT WITH NO HALLUCINATIONS OR DELUSIONS. PATIENT WITH NO HOMICIDAL OR SUICIDAL IDEATIONS. P-CONTINUE TO ENCOURAGE MEDICATION COMPLIANCE, CONTINUE TO PRESENT REALITY, ENCOURAGE GROUP THERAPY WHILE AWAKE
--- NOTE | 2020-04-04 06:31 | NUR ---
PATIENT SLEPT 7-8 HOURS OF UNINTERRUPTED SLEEP THROUGHOUT SHIFT. Q 15 MINUTE CHECKS MAINTAINED. 24 HR chart check completed.
[2020-04-04 06:56] VITALS: BP 142/61
--- NOTE | 2020-04-04 08:15 | NUR ---
PT CONSENTED TO LAB DRAW AT THIS TIME, LABS OBTAINED.
--- NOTE | 2020-04-04 09:00 | NUR ---
Treatment Plan meeting was held this a.m. with Dr. Gauthier, RN, AT, THREAD GRINDER-S and Lead Producer. Plan for discharge Wednesday. Pt. will return to [facility]. Facility was not able to facilitate Transfer to [facility] due to [facility] information not avalable to complete level of Care.
--- NOTE | 2020-04-04 11:10 | NUR ---
JOCELYNN GARCIA SPORTS ANCHOR ON UNIT TO ASSESS PT, UPDATE PROVIDED.
--- NOTE | 2020-04-04 12:00 | NUR ---
AM GROUP PT DID NOT ATTEND MORNING GROUP THERAPY. PT WAS IN BED RESTING.
--- NOTE | 2020-04-04 12:43 | NUR ---
P- ISOLATIVE. GUARDED. SPENDING MORE APPROPRIATE AMOUNTS OF TIME IN BATHROOM, PT EASIER TO REDIRECT. PT RESTING IN BED RATHER THAN SPENDING EXTENDED PERIODS OF THE TOILET, MOVES SELF FREQUENTLY. I- ORIENTATION, MOOD AND BEHAVIORS ASSESSED. ASSESSED PT FOR SI/HI, INTENT OR PLAN. ASSESSED PT FOR S/S HALLUCINATIONS, PARANOIA AND/OR DELUSIONS. MEDICATIONS ADMINISTERED PER PHYSICIAN'S ORDERS. ASSISTANCE WITH ADL CARE PROVIDED NEEDED. ENCOURAGED PT TO ATTEND AND PARTICIPATE IN [facility] GROUPS AND ACTIVITIES. R- PT IS ALERT AND ORIENTED TO PERSON, PLACE, TIME. RESPS EASY AND EVEN ON ROOM AIR. MOOD APPEARS STABLE, FLAT AFFECT. PT APPEARS SLIGHTLY GUARDED. ENGAGES IN MINIMAL CONVERASTION, ANSWERS QUESTIONS WITH SHORT RESPONSES. PT DENIES SI/HI, INTENT OR PLAN. PT DENIES HALLUCINATIONS, NO RESPONSE TO INTERNAL STIMULI NOTED. NO PARANOIA OR DELUSIONS NOTED. PT HAS BEEN EDUCATED REGARDING IMPORTANCE OF NOT SPENDING EXTENDED AMOUNTS OF TIME IN THE BATHROOM SITTING ON THE TOILET AND ENCOURAGED TO MAINTAIN A Q2H TOILETING SCHEDULE. PT HAS BEEN DOING MUCH BETTER WITH THIS BEHAVIOR. PT HAS BEEN SPENDING MORE APPROPRIATE AMOUNTS OF TIME IN THE BATHROOM AND HAS BEEN RESTING IN BED INSTEAD. MOVES SELF ABOUT THE BED FREQUENTLY. PT REMAINS ISOLATIVE, PT COMES DOWN TO DINING ROOM FOR MEALS BUT THEN RETURNS TO ROOM. ENCOURAGED TO COME TO MORNING GROUP WITHOUT SUCCESS. WILL REATTEMPT FOR AFTERNOON GROUP. PT IS MEDICATION COMPLIANT WITHOUT DIFFICULTY. PT REPORTS LAST BM 2 DAYS AGO. DENIES CONSIPATION OR NEEDING A LAXATIVE. NO AGGRESSIVE BEHAVIORS. NO DISTRESS NOTED. P- PLAN TO CONTINUE CURRENT TREATMENT, CONTINUE TO MONITOR MOOD AND BEHAVIORS. PROVIDE APPRPROPRIATE REORIENTATION AND REDIRECTION NEEDED. CONTINUE TO ENCOURAGE MEDICATION COMPLIANCE WELL GROUP ATTENDANCE AND PARTICIPATION.
--- NOTE | 2020-04-04 15:41 | NUR ---
PM GROUP PT DID NOT COME TO AFTERNOON GROUP THERAPY. PT WAS IN BED RESTING
--- NOTE | 2020-04-04 17:05 | NUR ---
PT HAS REFUSED SHOWER DESPITE SEVERAL ATTEMPTS THIS DATE. UNABLE TO UTILIZE SELChat& (ChatAnd) BLUE PER ORDERS. WILL PASS ALONG TO NEXT SHIFT.
--- NOTE | 2020-04-04 17:36 | NUR ---
PT NOTED AMBULATING IN HALLWAY, ASKED PT IF SHE NEEDED HELP WITH ANYTHING, PT STATES "NO. JUST WALKING".
--- NOTE | 2020-04-04 20:28 | NUR ---
Patient refused vital signs except for temperature and pulse ox at this time.
--- NOTE | 2020-04-04 21:42 | NUR ---
Patient alert and oriented to person,place and time. Patient isolative to room all evening. Patient denies any SI/HI or hallucinations at this time. No s/s of any responding to internal stimuli noted at this time. Patient refused all HS medications at this time. Attempted to provide 1:1 for emotional support but patient refused. Redirected when needed. Plan to continue to encourage medication compliance. Also continue to offer emotional support and continue to redirect when needed/appropriate. Will also continue to monitor moods/behaviors. Q 15 minute safety checks continued and maintained. See [facility] flowsheet for further documentation.
--- NOTE | 2020-04-05 05:51 | NUR ---
Patient slept approx. 4.5 hours of interrupted sleep throughout shift. Q 15 minute safety checks continued and maintained.
[2020-04-05 07:43] VITALS: BP 149/83
--- NOTE | 2020-04-05 08:37 | NUR ---
SPOKE WITH DR GRAHAM RE: PT DC FOR TODAY AND MEDICAL MEDS NEEDING COMPLETED.
--- NOTE | 2020-04-05 09:00 | NUR ---
Treatment Plan meeting was held this a.m. with GILSON Godoy, RN, AT, RECORDS MANAGEMENT ENGINEER-S and Customer Service Representative. Plan for discharge today. Pt. will return to [facility]. Transportation arranged with [facility] to Transport with vegetable picker time 12:30.
--- NOTE | 2020-04-05 09:01 | NUR ---
DR SHAW ON UNIT TO ASSESS PT; UPDATED PROVIDED TO
[2020-04-05] MEDS ORDERED: TRIAZOLAM0.125 MG PO (09:30)
[2020-04-05] MEDS ORDERED: MIRTAZAPINE15 M1 PO (09:30)
[2020-04-05] MEDS ORDERED: INVEGA SUSTENN156 MG IM (09:30)
--- NOTE | 2020-04-05 10:45 | NUR ---
Discharge Paperwork Faxed to [facility]. Also notified Lolis Quick at [facility] that Pt. will return to [facility] due to Unable to Complete Level of Care. Left Message for Pt. Legal Guardian Narcisa concerning discharge and return to [facility].
--- NOTE | 2020-04-05 11:29 | NUR ---
PATIENT STATES SHE IS "DOING WELL TODAY". PATIENT IS ALERT TO PERSON, PLACE, TIME AND SITUATION. MOOD IS STABLE. DENIES SUICIDAL IDEATION, DENIES HOMICIDAL IDEATION. DENIES HALLUCINATIONS. DENIES DELUSIONS. LAST BM 04/04/20. PATIENT IS INTERACTIVE AND PARTICIPATIVE WITH STAFF DURING ASSESSMENT. DENIES ANY PAIN. MEDICATION COMPLIANT WITH EDUCATION. Q 15 MINUTE SAFETY CHECKS MAINTAINED. INDEPENDENT WITH ACTIVITES OF DAILY LIVING, CONTINENT OF BOWEL AND BLADDER. SET UP FOR MEALS, INTAKES ARE GOOD WITH ADEQUATE FLUIDS. AMBULATORY WITH WALKER. WILL CONTINUE TO MONITOR FOR ANY BIZARRE BEHAVIORS AND HALLUCINATIONS.
--- NOTE | 2020-04-05 11:34 | NUR ---
NURSE TO NURSE REPORT GIVEN TO JARET AT [facility]. ADVISED THAT FIELD SALES AGENT IS SCHEDULED FOR 1230.
--- NOTE | 2020-04-05 11:40 | NUR ---
AM GROUP PT CHOSE NOT TO ATTEND MORNING GROUP THERAPY. PT IS SET TO BE DISCHARGED FROM THE UNIT THIS AFTERNOON
--- NOTE | 2020-04-05 12:28 | NUR ---
PT DC TO [facility]IA [facility]. PT BELONGINGS AND DC PAPERWORK SENT WITH PT.
--- NOTE | 2020-04-05 14:05 | NUR ---
Patient discharged to [facility] where she is a long-term care resident. Follow-up will be with Dr Up, visiting psychiatrist. While at [facility], pt's bizarre behaviors lessened. Pt had a tendency to isolate in her room and interacted minimally with staff. Pt did not interact with her peers.
== END 2020-04-05 12:28 | disposition other institution (70) | DRG 750 ==
LOC: 3N 15:15
PROVIDERS: Counselor Professional; Internal Medicine; ADMIT Psychiatry & Neurology Psychiatry; ATTEND Psychiatry & Neurology Psychiatry
DX: F25.9 Schizoaffective disorder, unspecified (principal); E03.9 Hypothyroidism, unspecified; E78.5 Hyperlipidemia, unspecified; I10 Essential (primary) hypertension; E11.9 Type 2 diabetes mellitus without complications; F03.90 Unspecified dementia, unspecified severity, without behavioral disturbance, psychotic disturbance, mood disturbance, and anxiety; Z20.828 Contact with and (suspected) exposure to other viral communicable diseases; K21.9 Gastro-esophageal reflux disease without esophagitis; G20 Parkinson's disease; F02.80 Dementia in other diseases classified elsewhere, unspecified severity, without behavioral disturbance, psychotic disturbance, mood disturbance, and anxiety; K58.9 Irritable bowel syndrome, unspecified; Z83.3 Family history of diabetes mellitus; Z82.5 Family history of asthma and other chronic lower respiratory diseases; Z79.899 Other long term (current) drug therapy